=== PATIENT | male | born 1935 | race Caucasian/White ===

== ENCOUNTER 2017-11-29 15:19 | Observation (INO) | payer OTHER ==
[~2017-11-29] VITALS: Ht 182.9 cm; Wt 102.5 kg
[~2017-11-29 15:19] MED LIST: ADVAIR HFA120 INHALA IH; AMLODIPINE-BEN1 EAC2 PO; AMLODIPINE-BEN1 EACH PO; ASPIR-LOW81 MG PO; CALCIUM500 M4 PO; CELEXA20 MG PO; CHLORHEXIDINE473 ML PO; CILOSTAZOL100 MG PO; CITALOPRAM HBR20 MG PO; COLACE100 MG PO; COUMADIN3 MG PO; DOCUSATE SODIU100 MG PO; KEPPRA500 MG PO; LEVETIRACETAM500 MG PO; LO-DOSE ASPIRIN81 M1 PO; METOPROLOL SUCC50 MG PO; NAPROXEN500 MG PO; POLYETHYLENE GL17 GM PO; SENNA-TIME S T1 EACH PO; SIMVASTATIN20 MG PO; SPIRIVA1 INHALATI IH; VENTOLIN HFA18 GM IH; VITAMIN D2000 INTUN PO; ZESTRIL10 MG PO; ZOCOR40 MG PO
[2017-11-29 16:12] LABS: BASOPHIL (%) 0.2 % (0-1); EOSINOPHIL (%) 0 % (0-5); HEMATOCRIT 43.5 % (38.0-50.0); HEMOGLOBIN 14.5 G/DL (12.5-16.6); IMMATURE GRANULOCYTE (%) 0.5 % (0.0-0.7); LYMPHOCYTE COUNT 0.4 K/uL (1.0-2.8); MCH 30.3 PG (29.0-34.0); MCHC 33.3 G/DL (30.0-36.0); MCV 90.8 FL (86-99); MONOCYTE (%) 6.2 % (3-12); MONOCYTE COUNT 0.8 K/uL (0-0.8); NEUTROPHIL (%) 90.1 % (45-76); PLATELET COUNT 166 K/uL (156-360); RBC DIS.WIDTH-CV 13.1 % (11.8-14.6); RBC DIS.WIDTH-SD 43.7 % (39-53); RED BLOOD COUNT 4.79 M/uL (4.00-5.50); WHITE BLOOD COUNT 13.3 K/uL (4.1-10.2)
[2017-11-29 16:20] LABS: INTER. NORMALIZED RATIO 1.1
[2017-11-29 16:22] LABS: PTT 23.3 SEC (25-37)
[2017-11-29 16:23] LABS: CHLORIDE 105 mEq/L (99-109); POTASSIUM 4.2 mEq/L (3.7-5.4); SODIUM 140 mEq/L (136-147)
[2017-11-29 16:25] LABS: GLUCOSE 151 mg/dL (70-99)
[2017-11-29 16:29] LABS: CREATININE 1.5 mg/dL (0.6-1.3); GFR ESTIMATE (CALCULATED) 48 mL/min/ (58.99-99999)
[2017-11-29 16:30] LABS: UREA NITROGEN (BUN) 20 mg/dL (9-23)
[2017-11-29 16:33] LABS: TROP-I INTERPRETATION NEGATIVE; TROPONIN-I 0.02 ng/mL (0.0-0.30)
[2017-11-29 18:11] LABS: APPEARANCE SL.HAZY ((CLEAR)); BILIRUBIN NEGATIVE; BLOOD NEGATIVE; COLOR AMBER ((YELLOW)); GLUCOSE (STRIP) NEGATIVE; KETONES NEGATIVE; LEUKOCYTES NEGATIVE; NITRITE NEGATIVE; PROTEIN (STRIP) 30; SPECIFIC GRAVITY 1.021 (1.000-1.030)
[2017-11-29 18:20] LABS: BACTERIA RARE /HPF; EPITHELIAL CELLS RARE /HPF; HYALINE CASTS 0-5 /LPF; MUCUS TRACE /LPF; RED BLOOD CELLS 0-5 /HPF (0-5); UCUL ADDED? NO; WHITE BLOOD CELLS 0-5 /HPF (0-5)
[2017-11-29 20:05] LABS: ALBUMIN 3.6 g/dL (3.2-4.8)
[2017-11-29 20:08] LABS: TOTAL PROTEIN 6.6 g/dL (6.4-8.3)
[2017-11-29 20:10] LABS: TOTAL BILIRUBIN 1.2 mg/dL (0.0-1.0)
[2017-11-29 20:11] LABS: ALKALINE PHOSPHATASE 116 IU/L (3-129)
[2017-11-29 20:13] LABS: AST (GOT) 23 IU/L (2-34); DIRECT BILIRUBIN 0.6 mg/dL (0.0-0.3)
[2017-11-29 20:14] LABS: ALT (GPT) 21 IU/L (3-49)
[2017-11-29 20:17] LABS: TROP-I INTERPRETATION NEGATIVE; TROPONIN-I 0.02 ng/mL (0.0-0.30)
[2017-11-29 20:50] LABS: HDL CHOLESTEROL 42 MG/DL (Desirable>=40); LDL CHOLESTEROL 67 mg/dL (Desirable<100); NON-HDL CHOLESTEROL 77 mg/dL (Desirable<160); TOTAL CHOLESTEROL 119 mg/dL (Desirable<200); TRIGLYCERIDES 51 MG/DL (Normal: <150)
[2017-11-29 22:46] VITALS: BP 131/71
[2017-11-30] VITALS (7 sets, daily range): BP systolic 96–163; BP diastolic 55–82
[2017-11-30 00:47] LABS: CHLORIDE 107 mEq/L (99-109); POTASSIUM 4.9 mEq/L (3.7-5.4); SODIUM 141 mEq/L (136-147)
[2017-11-30 00:49] LABS: GLUCOSE 132 mg/dL (70-99)
[2017-11-30 00:52] LABS: CREATININE 1.3 mg/dL (0.6-1.3); GFR ESTIMATE (CALCULATED) 56 mL/min/ (58.99-99999)
[2017-11-30 00:53] LABS: UREA NITROGEN (BUN) 20 mg/dL (9-23)
[2017-11-30 00:59] LABS: TROP-I INTERPRETATION NEGATIVE; TROPONIN-I 0.03 ng/mL (0.0-0.30)
[2017-11-30 05:12] LABS: TROP-I INTERPRETATION NEGATIVE; TROPONIN-I 0.02 ng/mL (0.0-0.30)
[2017-11-30 08:02] LABS: HEMOGLOBIN A1c (GLYCOHEMOGLOB) 5.4 % (Below 5.7)
[2017-12-01] VITALS (7 sets, daily range): BP systolic 114–152; BP diastolic 55–80
[2017-12-01 05:48] LABS: BASOPHIL (%) 0.2 % (0-1); EOSINOPHIL (%) 0.8 % (0-5); EOSINOPHIL COUNT 0.1 K/uL (0-0.3); IMMATURE GRANULOCYTE (%) 0.1 % (0.0-0.7); LYMPHOCYTE (%) 7.4 % (15-42); LYMPHOCYTE COUNT 0.6 K/uL (1.0-2.8); MCH 29.5 PG (29.0-34.0); MCHC 32.2 G/DL (30.0-36.0); MCV 91.8 FL (86-99); MONOCYTE (%) 9.6 % (3-12); MONOCYTE COUNT 0.8 K/uL (0-0.8); NEUTROPHIL (%) 81.9 % (45-76); NEUTROPHIL COUNT 7.1 K/uL (1.8-6.4); PLATELET COUNT 158 K/uL (156-360); RBC DIS.WIDTH-SD 44.3 % (39-53); RED BLOOD COUNT 4.03 M/uL (4.00-5.50); WHITE BLOOD COUNT 8.7 K/uL (4.1-10.2)
[2017-12-01 05:55] LABS: CHLORIDE 109 MEQ/L (99-109); CREATININE 1.2 MG/DL (0.6-1.3); GFR ESTIMATE (CALCULATED) > 59 mL/min/ (58.99-99999); GLUCOSE 110 mg/dL (70-99); POTASSIUM 4.2 MEQ/L (3.7-5.4); SODIUM 142 MEQ/L (136-147); UREA NITROGEN (BUN) 21 mg/dL (9-23)
[2017-12-01 06:04] LABS: HEMOGLOBIN 11.9 G/DL (12.5-16.6)
[2017-12-02 02:56] VITALS: BP 131/69
[2017-12-02 08:48] VITALS: BP 163/76
[2017-12-02 11:12] VITALS: BP 130/75
[2017-12-02 13:11] VITALS: BP 129/74
[2017-12-02 15:18] VITALS: BP 149/77
[2017-12-02 23:32] VITALS: BP 154/85
[2017-12-03] VITALS (7 sets, daily range): BP systolic 135–169; BP diastolic 67–87
[2017-12-03 13:50] LABS: HEMATOCRIT 39.3 % (38.0-50.0); MCHC 33.1 G/DL (30.0-36.0); MCV 90.6 FL (86-99); RBC DIS.WIDTH-CV 12.7 % (11.8-14.6); RBC DIS.WIDTH-SD 42.5 % (39-53); RED BLOOD COUNT 4.34 M/uL (4.00-5.50); WHITE BLOOD COUNT 7.3 K/uL (4.1-10.2)
[2017-12-03 14:16] LABS: ALBUMIN 3.4 G/DL (3.2-4.8); ALKALINE PHOSPHATASE 118 IU/L (3-129); ALT (GPT) 19 IU/L (3-49); AST (GOT) 26 IU/L (2-34); CHLORIDE 110 MEQ/L (99-109); CREATININE 0.9 MG/DL (0.6-1.3); GFR ESTIMATE (CALCULATED) > 59 mL/min/ (58.99-99999); GLUCOSE 119 mg/dL (70-99); POTASSIUM 4.4 MEQ/L (3.7-5.4); SODIUM 142 MEQ/L (136-147); TOTAL BILIRUBIN 0.5 MG/DL (0.0-1.0); TOTAL PROTEIN 6.6 G/DL (6.4-8.3); UREA NITROGEN (BUN) 16 mg/dL (9-23)
[2017-12-03 14:25] LABS: PLATELET COUNT 224 K/uL (156-360)
[2017-12-03] MEDS ORDERED: ERGOCALCIF50000 UNIT PO (14:48)
[2017-12-03] MEDS ORDERED: VENTOLIN HFA18 GM IH (14:48)
[2017-12-03] MEDS ORDERED: ASPIRIN EC325 MG PO (14:48)
[2017-12-03] MEDS ORDERED: LISINOPRIL5 MG PO (14:48)
[2017-12-03] MEDS ORDERED: B-121000 MC2 SL (14:49)
[2017-12-03] MEDS ORDERED: PREDNISONE10 MG PO (14:49)
[2017-12-03] MEDS ORDERED: SPIRIVA18 MCG IH (14:50)
[2017-12-04] VITALS (7 sets, daily range): BP systolic 121–178; BP diastolic 65–90
== END 2017-12-04 18:25 ==
LOC: EME 15:19 → 4SOUTH 19:46 → EDOF 19:46 → ENRESERV 19:53 → 4SOUTH 22:17
PROVIDERS: Emergency Medicine; Hospitalist; Internal Medicine
DX: R55 Syncope and collapse (principal); I95.1 Orthostatic hypotension; D68.9 Coagulation defect, unspecified; I69.328 Other speech and language deficits following cerebral infarction; I69.351 Hemiplegia and hemiparesis following cerebral infarction affecting right dominant side; I69.391 Dysphagia following cerebral infarction; R13.10 Dysphagia, unspecified; I63.232 Cerebral infarction due to unspecified occlusion or stenosis of left carotid arteries; I10 Essential (primary) hypertension; R73.9 Hyperglycemia, unspecified; G89.29 Other chronic pain; R10.11 Right upper quadrant pain; J44.9 Chronic obstructive pulmonary disease, unspecified; R60.9 Edema, unspecified; E53.8 Deficiency of other specified B group vitamins; F10.10 Alcohol abuse, uncomplicated; E78.5 Hyperlipidemia, unspecified; Z85.46 Personal history of malignant neoplasm of prostate; Z87.891 Personal history of nicotine dependence; Z82.3 Family history of stroke
CPT/HCPCS: 70450; 70551; 71045; 73130; 74176; 78582; 80048; 80053; 80061; 80076; 81003; 82140; 82306; 82607; 83036; 83605; 84443; 84484; 85025; 85027; 85379; 85610; 85730; 87040; 93005; 93970; 94640; 94640 76; 95819; 99202; 99281; 99285; A9540; A9567; G0378; J1644; J3420; J7030; J7512